=== PATIENT | female | born 2000 | race Hispanic/Latino ===

== ENCOUNTER 2025-09-21 21:50 | Inpatient (IN) | payer OTHER ==
[~2025-09-21] VITALS: Ht 162.6 cm; Wt 133.8 kg
[2025-09-21 23:41] LABS: MCH 31.5 PG (25.6-32.2); MCHC 34.1 g/dL (32.2-35.5); MCV 92.3 fL (79.4-94.8); RBC 3.75 M/uL (3.93-5.22)
[2025-09-21] MEDS ORDERED: OXYTOCIN/0.9 % SODIUM CHLORIDE 30 UNITS/500 ML BAG IV SCH (23:45)
[2025-09-21] MEDS ORDERED: TERBUTALINE SULFATE 1 MG/ML AMP SUB-Q PRN (23:45)
[2025-09-21] MEDS ORDERED: MAGNESIUM HYDROXIDE/AL HYDROX 30 ML CUP PO PRN (23:45)
[2025-09-21] MEDS ORDERED: CALCIUM CARBONATE 500 MG CHEW PO PRN (23:45)
[2025-09-21] MEDS ORDERED: PENICILLIN G POTASSIUM 5 MUNITS in SODIUM CHLORIDE 0.9% 100 ML IV ONE (23:45)
[2025-09-21] MEDS ORDERED: LACTATED RINGER'S 1,000 ML IV PRN (23:45)
[2025-09-21] MEDS ORDERED: LIDOCAINE HCL 1% 30 ML SDV INJ PRN (23:45)
[2025-09-22 00:10] VITALS: BP 135/67
[2025-09-22 00:15] LABS: ABO O; RH POSITIVE
[2025-09-22 00:16] LABS: ANTIBODY SCREEN NEGATIVE
[2025-09-22] MEDS ORDERED: ROPIVACAINE 0.2% 200 ML BAG ONE (00:20)
[2025-09-22] MEDS ORDERED: ROPIVACAINE 0.2% 200 ML BAG EPIDURAL SCH (01:15)
[2025-09-22] MEDS ORDERED: ePHEDrine sulfate 5 MG/ML SYRINGE IV PRN (01:15)
[2025-09-22] MEDS ORDERED: LACTATED RINGER'S 500 ML IV PRN (01:15)
[2025-09-22] MEDS ORDERED: LACTATED RINGER'S 2,000 ML IV ONE (01:15)
[2025-09-22] MEDS ORDERED: PENICILLIN G POTASSIUM 2.5 MUNITS in SODIUM CHLORIDE 0.9% 100 ML IV SCH (04:00)
[2025-09-22] MEDS ORDERED: OXYTOCIN/0.9 % SODIUM CHLORIDE 500 ML IV SCH ×2 (09:45→12:15)
[2025-09-22] MEDS ORDERED: HYDROCORTISONE ACETATE 25 MG SUPP PR PRN (12:15)
[2025-09-22] MEDS ORDERED: MAGNESIUM HYDROXIDE 30 ML UDC PO PRN (12:15)
[2025-09-22] MEDS ORDERED: CALCIUM CARBONATE 500 MG CHEW PO PRN (12:15)
[2025-09-22] MEDS ORDERED: LIDOCAINE 2% VISCOUS 6 ML SYR TOP ONE ×2 (12:15)
[2025-09-22] MEDS ORDERED: WITCH HAZEL/GLYCERIN 1 EA PAD TOP PRN (12:15)
[2025-09-22] MEDS ORDERED: MAGNESIUM HYDROXIDE/AL HYDROX 30 ML CUP PO PRN (12:15)
[2025-09-22] MEDS ORDERED: HYDROCODONE/ACETA 5/325 TAB PO PRN (12:15)
[2025-09-22] MEDS ORDERED: BENZOCAINE 60 ML AEROSOL TOP PRN (12:15)
[2025-09-22] MEDS ORDERED: SENNOSIDES/DOCUSATE 1 EA TAB PO SCH (12:20)
[2025-09-22] MEDS ORDERED: ACETAMINOPHEN 500 MG TAB PO SCH (14:00)
[2025-09-22] MEDS ORDERED: IBUPROFEN 800 MG TAB PO SCH (14:00)
[2025-09-22 18:53] LABS: N. GONORRRHOEAE BY PCR NOT DETECTED (NOT DETECT)
== END 2025-09-23 19:04 | disposition home or self-care (01) | DRG 807 ==
LOC: FBCO 21:50 → FBC 22:20
PROVIDERS: ADMIT Obstetrics & Gynecology; ATTEND Obstetrics & Gynecology
PROC: 3E03329 Introduction of Other Anti-infective into Peripheral Vein, Percutaneous Approach (ICD-10-PCS; principal; 2025-09-21)
PROC: 10E0XZZ Delivery of Products of Conception, External Approach (ICD-10-PCS; 2025-09-22)
PROC: 0KQM0ZZ Repair Perineum Muscle, Open Approach (ICD-10-PCS; 2025-09-22)
PROC: 3E0R3BZ Introduction of Anesthetic Agent into Spinal Canal, Percutaneous Approach (ICD-10-PCS; 2025-09-22)
PROC: 00HU33Z Insertion of Infusion Device into Spinal Canal, Percutaneous Approach (ICD-10-PCS; 2025-09-22)
DX: O99.824 Streptococcus B carrier state complicating childbirth (principal); Z37.0 Single live birth; Z3A.39 39 weeks gestation of pregnancy; O70.1 Second degree perineal laceration during delivery; Z79.899 Other long term (current) drug therapy
CPT/HCPCS: 01960; 36415; 82247; 82248; 85027; 86850; 86900; 86901; 87491; A9270; J2540; J2795; J7121